=== PATIENT | male | born 1985 | race Caucasian/White ===

== ENCOUNTER 2016-12-21 19:04 | Emergency (ER) | payer MEDICAID ==
[2016-12-21 19:54] LABS: % IMMATURE GRANULYOCYTES 0.4 % (0.0-1.1); ABSOLUTE IMMATURE GRANULOCYTES 0.04 10^3/uL (0.00-0.10); ADD DIFF? NO; ADD MORPH? NO; ADD SCAN? NO; ATYPICAL LYMPHOCYTE FLAG 40 (0-99); FRAGMENT RBC FLAG 0 (0-99); HEMATOCRIT 43.9 % (40.0-51.0); HEMOGLOBIN 15.9 g/dL (13.7-17.5); LEFT SHIFT FLG 0 (0-99); LIPEMIA HEMOLYSIS FLAG 90 (0-99); MEAN CELL HEMOGLOBIN 32.4 pg (27.9-34.1); MEAN CELL HEMOGLOBIN CONCENTR. 36.2 g/dL (32.4-36.7); MEAN CELL VOLUME 89.4 fL (81.5-99.8); MEAN PLATELET VOLUME 10.2 fL (8.7-11.7); PLATELET CLUMPS FLAG 0 (0-99); PLATELET COUNT 317 10^3/uL (150-400); RED BLOOD CELL COUNT 4.91 10^6/uL (4.40-6.38); RED CELL DISTRIBUTION WIDTH 12.8 % (11.5-15.2)
[2016-12-21 20:07] LABS: ANION GAP 13 mEq/L (8-16); CALCIUM 9.6 mg/dL (8.5-10.4); CARBON DIOXIDE 22 mEq/l (22-31); CHLORIDE 105 mEq/L (97-110); CREATININE 0.8 mg/dL (0.7-1.3); ETHANOL SERUM < 10 mg/dL (0-10); GLOMERULAR FILTRATION RATE > 60; GLUCOSE 101 mg/dL (70-100); POTASSIUM 4.1 mEq/L (3.5-5.2); SODIUM 140 mEq/L (134-144)
--- NOTE | 2016-12-21 20:27 | EDPHY ---
H & P Smoking Status: Current every day smoker Time Seen by Provider: 12/21/16 19:35 HPI/ROS: CHIEF COMPLAINT: M1 hold, feeling paranoid HISTORY OF PRESENT ILLNESS: 31-year-old male presents to the emergency department on M1 hold. Patient has a history of substance abuse. He last used meth 3 days ago. He feels very depressed. He has had suicidal thoughts although does not currently feel suicidal. He denies homicidal thoughts. He does have auditory and visual hallucinations. He recently got out of [facility]. He states he is having trouble finding a therapist and "getting help ". He currently has no physical complaints. He denies chest pain or difficulty breathing. Denies abdominal pain. Denies any reported trauma. REVIEW OF SYSTEMS: Constitutional: No fever, no chills. Eyes: No double or blurry vision. ENT: No sore throat. Respiratory: No cough, no shortness of breath. Cardiac: No chest pain. Gastrointestinal: No abdominal pain, vomiting or diarrhea. Genitourinary: No dysuria. Musculoskeletal: No neck or back pain. Skin: No rashes. Neurological: No headache. (Mary Spencer) Past Medical/Surgical History: Substance abuse, depression (Mary Spencer) Social History: Lives with his mother in [facility] (Mary Spencer) Physical Exam: General Appearance: Alert, no distress. Vital signs are stable. Eyes: Pupils equal and round. Extraocular motions are all intact. ENT: Mouth: Mucous membranes moist. Respiratory: No wheezing, rhonchi, or rales, lungs are clear to auscultation. Cardiovascular: Regular rate and rhythm. Gastrointestinal: Abdomen is soft and nontender, no masses, no rebound or guarding, bowel sounds normal. Neurological: Alert and oriented x 3, cranial nerves II through XII grossly intact Skin: Warm and dry, no rashes. Musculoskeletal: Nontender to palpate along the cervical, thoracic or lumbar spine. Neck is supple. Extremities: Full range of motion and no peripheral edema. Psychiatric: Patient is oriented X 3, there is no agitation. (Mary Spencer) Constitutional: Initial Vital Signs Temperature (C) 36.6 C 12/21/16 19:39 Heart Rate 100 12/21/16 19:39 Respiratory Rate 18 12/21/16 19:39 Blood Pressure 117/92 H 12/21/16 19:39 O2 Sat (%) 95 12/21/16 19:39 O2 Delivery Mode Room Air Allergies/Adverse Reactions: No Known Allergies Allergy (Unverified 12/21/16 19:19) Home Medications: Medication Instructions Recorded NK [No Known Home Meds] 12/21/16 Medical Decision Making ED Course/Re-evaluation: 31-year-old male presents to the emergency department on M1 hold. The patient has been medically cleared and is awaiting mental health evaluation. (Mary Spencer) 0521AM: No acute events overnight. Patient been sleeping. Patient been evaluated by mental health and they recommend placement for psychiatric evaluation. He is paranoid. Positive for methamphetamine. 0715; 12/23/16 no acute events overnight. Patient is sleeping. Patient signed over to Dr. Alvarez at 7:00 a.m. shift change. Patient pending inpatient psychiatric hospitalization. Positive for methamphetamine. Paranoid. (Johnathon Noe) I assumed care of this patient from Dr. Galrand at change of shift, 3:00 p.m.. 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 He was stable throughout my shift. He required no additional medications. Patient's care was assumed by Dr. Noe at 11:45 p.m.. We continue to await placement. (Yamila Vasquez) I took over care of this patient at 7:00 a.m.. This patient is on an M1 hold for suicidal ideation and methamphetamine abuse. He is awaiting admission for psychiatric placement. 3:00 p.m., the patient still awaits placement for psychiatric care. Care turned over to Dr. Yamila Vasquez at this time. (Shon Garland) Differential Diagnosis: Depression including functional and major depression, situational depression, medication side effect, drugs and alcohol abuse. (Mary Spencer) Other Provider: I assumed care of the patient at 7 o'clock in the morning pending psychiatric disposition. 2:40 p.m.: I am informed the patient may be accepted at [facility]. He will be turned over to Dr. Crenshaw at shift change. (Abhishek Alvarez) I assumed care of this patient from Dr. jenny Alvarez at 3:00 p.m.. At 5:30 p.m. I was notified that he he has an inpatient psychiatric bed available. I have signed the EMTALA form. Transfer is being arranged. (Bhavya Crenshaw) Care Turn Over: Care will be turned over to Dr. Johnathon Noe for disposition and plan. (Mary Spencer) - Data Points Laboratory Results: Laboratory Results 12/21/16 19:38 12/21/16 19:38 Departure - Departure Disposition: Other Psych, Not [place] Clinical Impression: Paranoid, Substance abuse, Suicidal ideation Condition: Fair Referrals: [facility] [Other] - As per Instructions
[2016-12-23 16:17] VITALS: RESP 18
[2016-12-23 18:14] VITALS: BP 133/88; PULSE 88; TEMP 97.9; O2SAT 96
== END 2016-12-23 20:04 ==
DX: R45.851 Suicidal ideations (principal); F22 Delusional disorders; F19.10 Other psychoactive substance abuse, uncomplicated; F17.200 Nicotine dependence, unspecified, uncomplicated
CPT/HCPCS: 80305; G0480